=== PATIENT | female | born 1960 | race Caucasian/White ===

== ENCOUNTER 2022-09-23 18:12 | Inpatient (IN) | payer OTHER ==
[~2022-09-23] VITALS: Ht 172.7 cm; Wt 61.2 kg
[~2022-09-23 18:12] MED LIST: ALPR0.25; ALPR0.255; BACL10TA; SERT20OR; [UNRECOGNIZED DRUG - CODE]
[2022-09-23 18:15] VITALS: BP_SYST 110
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
--- NOTE | 2022-09-23 18:25 | NUR ---
ER DR. JONES EXAMINING PT
--- NOTE | 2022-09-23 18:39 | NUR ---
Placed in room 07 . Placed on housekeeping supervisor, blood pressure machine and pulse oximeter. To gown for exam. Side rails up.
[2022-09-23] MEDS ORDERED: ROCURONIUM BROMIDE 10 MG/ML (ZEMURON) IV ONE (18:45)
[2022-09-23] MEDS ORDERED: ETOMIDATE 20 MG/ 10 ML VIAL (AMIDATE) ONE (18:45)
[2022-09-23] MEDS ORDERED: ROCURONIUM BROMIDE 10 MG/ML (ZEMURON) ONE (18:45)
[2022-09-23] MEDS ORDERED: ETOMIDATE 20 MG/ 10 ML VIAL (AMIDATE) IVP ONE (18:45)
--- NOTE | 2022-09-23 18:46 | NUR ---
Patient not known to be of DNR status. Patient medicated with mg of ETOMIDATE for sedation prior to placement of ET tube. Respiratory therapy at bedside prior to placement. Size 7 ET tube placed by ER DR. JONES. Cuff inflated with 10 cc air. Auscultation of breath sounds over bilateral chest wall. ET tube secured. O2 sats 100% pulse ox. PCXR ordered to check tube placement.
--- NOTE | 2022-09-23 19:20 | NUR ---
COVID SPECIMEN COLLECTED AND SENT TO LAB.
[2022-09-23 19:34] LABS: BASOPHILS # (AUTO) 0.1 K/uL (0.0-0.2); HEMOGLOBIN 15.1 g/dL (12.0-16.0); LYMPHOCYTES # (AUTO) 0.2 K/uL (1.0-5.5); MEAN CORPUSCULAR VOLUME 103 fL (79.0-98.0); NEUTROPHILS # (AUTO) 7.3 K/uL (1.8-7.7); RED CELL DISTRIBUTION WIDTH 14.9 % (9.0-15.0)
[2022-09-23 19:38] LABS: BASOPHILS % (AUTO) 0.9 % (0.0-2.0); HEMATOCRIT 45.2 % (36-48); LYMPHOCYTES % (AUTO) 2.1 % (20.5-51.5); MEAN CORPUSCULAR HEMOGLOBIN 34 pg (27-31); MEAN CORPUSCULAR HGB CONC 33 % (32-36); MONOCYTES # (AUTO) 0.5 K/uL (0.0-1.0); PLATELET COUNT (AUTO) 187 K/uL (130-430); RED BLOOD CELL COUNT(AUTO) 4.39 MIL/uL (4.2-6.2); WHITE BLOOD COUNT (AUTO) 8.1 K/uL (4.8-10.8)
[2022-09-23] MEDS ORDERED: levETIRAcetam 1,000 MG IV BAG 100 ML IV ONE (19:45)
--- NOTE | 2022-09-23 19:45 | NUR ---
Received report at this time from MAYA Aguilar. Notified by charge nurse that assignment has been changed to include this patient. No additional nurses available at this time.
[2022-09-23 19:55] LABS: ANION GAP 23 (5-15); CALCIUM 10.4 mg/dL (8.4-11.0); CHLORIDE 99 mmol/L (98-107); GLUCOSE 105 mg/dL (70-99); UREA NITROGEN, BLOOD 5 mg/dL (8-21)
[2022-09-23 20:08] LABS: GFR AFRICAN AMERICAN 49 mL/min (>90)
[2022-09-23 20:10] LABS: ALANINE AMINOTRANSFERASE 120 U/L (12-78); ALBUMIN 4.2 g/dL (3.4-4.8); ASPARTATE AMINOTRANSFERASE 143 U/L (10-37); TOTAL BILIRUBIN 0.8 mg/dL (0.0-1.0)
[2022-09-23 20:12] LABS: ALCOHOL, BLOOD < 3 mg/dL (<10)
[2022-09-23] MEDS ORDERED: PROPOFOL DRIP 100 ML IV ONE (20:15)
[2022-09-23] MEDS ORDERED: LORazepam 2 MG/ML VIAL IVP ONE ×2 (20:15→21:15)
--- NOTE | 2022-09-23 20:15 | NUR ---
Increased propofol gtt to 24.98mcg/kg/min=9.86ml/hr.
--- NOTE | 2022-09-23 20:40 | NUR ---
Propofol Started at 9.984mcg/kg/min =3.94ml/hr.
--- NOTE | 2022-09-23 20:50 | NUR ---
Propofol gtt increased to 19.99mcg/kg/min=7.89ml/hr. Pt still attempting to self extubate.
[2022-09-23] MEDS ORDERED: NACL 0.9% 2,000 ML IV ONE (21:00)
[2022-09-23] MEDS ORDERED: NOREPINEPHRINE BITARTRATE 4 MG in NS 246 ML IV ONE (21:00)
--- NOTE | 2022-09-23 21:05 | NUR ---
Report given to KHLOE Moralez. Assignment changed.
[2022-09-23] MEDS ORDERED: LORazepam 2 MG/ML VIAL ONE (21:11)
[2022-09-23] MEDS ORDERED: MIDAZOLAM HCL 5 MG/5 ML VIAL IVP ONE (21:45)
[2022-09-23] MEDS ORDERED: MIDAZOLAM IN NACL,ISO-OSMOT/PF 100 ML IV PRN (21:45)
[2022-09-23] MEDS ORDERED: PIPERACILLIN/TAZO 3.375 GM in NS 50 ML IV ONE (22:15)
[2022-09-23] MEDS ORDERED: VANCOMYCIN HCL 1,500 MG in NS 250 ML IV SCH (22:15)
[2022-09-23] MEDS ORDERED: MIDAZOLAM IN NACL,ISO-OSMOT/PF 100 ML IV ONE (22:17)
[2022-09-23] MEDS ORDERED: VANCOMYCIN HCL 1000 MG/VIAL IV ONE (22:52)
[2022-09-23] MEDS ORDERED: PIPERACILLIN/TAZOBACTAM 3.375 GM/VIAL (ZOSYN) IV ONE (22:53)
[2022-09-23] MEDS ORDERED: VANCOMYCIN HCL 500 MG/VIAL IV ONE (22:53)
[2022-09-24] VITALS (30 sets, daily range): BP systolic 86–141
--- NOTE | 2022-09-24 00:12 | NUR ---
Bagley catheter inserted with femal nurse at bedside
[2022-09-24] MEDS ORDERED: FOLIC ACID 1 MG, THIAMINE HCL 100 MG, MAGNESIUM SULFATE 1 GM, MVI 10 ML in NACL 0.9% 1,... IV ONE (01:15)
[2022-09-24] MEDS ORDERED: LORazepam 2 MG/ML VIAL IM ONE (01:15)
--- NOTE | 2022-09-24 01:20 | NUR ---
Admit bed requested Patient will be admitted to care of . Admitted to icu unit. Diagnosis seizure Inpatient (Yes or No) yes Observation (Yes or No) yes Orientation concerns or request close to nursing station (Yes or No) yes Covid Status negative On vent or bipap vent Isolation requirements no Needs a sitter n From Home (Yes or if No enter name of facility) yes Requires Dialysis (Yes or No) n Med Rec Completed (Yes of No) y
[2022-09-24 01:32] LABS: BILIRUBIN,URINE NEGATIVE (NEGATIVE); BLOOD, URINE 2+ (NEGATIVE); CLARITY/URINE CLEAR (CLEAR); COLOR,URINE YELLOW (YELLOW); GLUCOSE,URINE NEGATIVE (NEGATIVE); KETONES,URINE 1+ (NEGATIVE); LEUKOCYTE ESTERASE ,URINE NEGATIVE (NEGATIVE); NITRITE, URINE NEGATIVE (NEGATIVE); PROTEIN URINE 1+ (NEGATIVE); UROBILINOGEN,URINE 0.2 (0.2-1.0)
[2022-09-24 02:18] LABS: BACTERIA,URINE FEW /HPF (None Seen); YEAST,URINE Few /HPF (None Seen)
[2022-09-24 02:19] LABS: MUCUS,URINE None Seen /LPF (None Seen)
[2022-09-24] MEDS ORDERED: SODIUM BICARBONATE 8.4% JECT 100 MEQ in D5W 1,000 ML IVP SCH (07:00)
[2022-09-24 07:21] LABS: CALCIUM 8.1 mg/dL (8.4-11.0); CREATININE 1.15 mg/dL (0.55-1.30)
[2022-09-24 07:25] LABS: BASOPHILS % (AUTO) 0.1 % (0.0-2.0); HEMATOCRIT 35.8 % (36-48); HEMOGLOBIN 12.2 g/dL (12.0-16.0); LYMPHOCYTES # (AUTO) 0.4 K/uL (1.0-5.5); LYMPHOCYTES % (AUTO) 5.8 % (20.5-51.5); MEAN CORPUSCULAR HEMOGLOBIN 34 pg (27-31); MEAN CORPUSCULAR HGB CONC 34 % (32-36); MEAN CORPUSCULAR VOLUME 101 fL (79.0-98.0); MONOCYTES # (AUTO) 0.4 K/uL (0.0-1.0); MONOCYTES % (AUTO) 5.5 % (1.7-9.3); NEUTROPHILS # (AUTO) 6.5 K/uL (1.8-7.7); NEUTROPHILS % (AUTO) 88.6 % (40.0-70.0); PLATELET COUNT (AUTO) 140 K/uL (130-430); RED BLOOD CELL COUNT(AUTO) 3.55 MIL/uL (4.2-6.2); RED CELL DISTRIBUTION WIDTH 14.4 % (9.0-15.0); WHITE BLOOD COUNT (AUTO) 7.3 K/uL (4.8-10.8)
--- NOTE | 2022-09-24 07:35 | NUR ---
RT NOTES FIO2 TO 0.30 per titration order. No adverse reactions noted. will monitor pt.
[2022-09-24] MEDS ORDERED: FOLIC ACID 1 MG, THIAMINE HCL 100 MG, MAGNESIUM SULFATE 1 GM, MVI 10 ML in NACL 0.9% 1,... IV SCH (08:00)
[2022-09-24] MEDS ORDERED: POTASSIUM CHLORIDE 20 MEQ/PKT PACKET PO ONE (08:30)
[2022-09-24] MEDS ORDERED: FENTANYL CITRATE-0.9 % NACL/PF 100 ML IV PRN (08:30)
--- NOTE | 2022-09-24 09:59 | NUR ---
PULMO ROUNDED DR BOWEN: NGT PLACED TO RIGHT NARE, XRAY VERIFIED PLACEMENT. DIETARY CONSULT FOR RECOMMENDATIONS FOR TUBE FEEDING. BANANA BAG WILL BE GIVEN X1, NA BICARB DC NOT INDICATED ANYMORE, WILL DC VERSED PLACE ON FENTANYL. POTASSIUM REPLACED WITH 40MEQ. LOVENOX AND FOLIC ACID ADDED. ATIVAN PRN SEIZURES IVP ADDED. SPOKE WITH HE STATED PATIENT IS FROM HOME FOUND NON RESPONSIVE YESTERDAY, UPDATED ON PATIENT STATUS. EXPLAINED PATIENT IS A CHRONIC ALCOHOLIC, WAS HOSPITALIZED LAST MARCH FOR ALCOHOL, SOBER THREE MONTHS AND RECENTLY RELAPSED. SHE DRINKS 100 BEERS OVER THE COURSE OF THREE DAYS. HE STATED HE HAS BEEN BATTLING THIS WITH HER FOR A LONG TIME. HE CURRENTLY WORKS AND WILL VISIT WHEN HE IS OFF.
--- NOTE | 2022-09-24 10:00 | NUR ---
DIRECTOR OF STUDENT FINANCIAL SERVICES ACSW Joann responded to a request for Social Service support to help address difficulties with contacting patient's significant other. ACSDeven David contacted [facility] cell . ACSW completed introductions and explained reason for call. He stated he has just spoken with ICU staff concerning patient. ACSW will continue to be available as needed
[2022-09-24] MEDS: ENOXAPARIN SODIUM 40 MG/0.4 ML SYRINGE SUBCUT SCH (10:05)
[2022-09-24] MEDS: FOLIC ACID 1 MG, MVI 10 ML in NACL 0.9% 1,000 ML IV SCH (10:11)
[2022-09-24] MEDS: FAMOTIDINE 20 MG TABLET NG SCH (10:11)
[2022-09-24] MEDS: THIAMINE HCL 100 MG, MAGNESIUM SULFATE 1 GM in NS 100 ML IV SCH (10:12)
[2022-09-24 11:12] LABS: ALBUMIN 3.1 g/dL (3.4-4.8); BILIRUBIN,DIRECT 0.4 mg/dL (0.0-0.3); TOTAL BILIRUBIN 0.8 mg/dL (0.0-1.0)
[2022-09-24] MEDS: PIPERACILLIN/TAZO 3.375/DEX-IS 50 ML IV SCH ×3 (12:22→23:27)
[2022-09-24] MEDS: PROPOFOL DRIP 100 ML IV PRN (12:55)
--- NOTE | 2022-09-24 13:35 | NUR ---
RT NOTES Low b/p, discussed with RN, will take pt to ct once more stable
[2022-09-24] MEDS: NOREPINEPHRINE BITARTRATE 8 MG in NS 242 ML IV PRN (13:59)
--- NOTE | 2022-09-24 15:20 | NUR ---
Dietitian Recommendations * Vital AF 1.2 at 50 ml/hr (goal rate), Free Water Flush: 150 ml Q6h via NGT Provides (w/ current propofol infusion rate): 1445 kcal/day, 68 gm protein/day, and 1330 ml free water/day Meets (w/ current propofol infusion rate): 103% of estimated caloric needs, 92% of lower end of estimated protein needs, and 95% of estimated fluid needs LP, MS, RD Please refer to Nutrition Assessment for details. Addendum: 09/24/22 at [address] Amended: Links added.
--- NOTE | 2022-09-24 15:45 | NUR ---
RT NOTES Assisted in transporting pt to and from ct, bagged with 100% O2 via BM device to ETT. Once in ct and back in the unit, pt to vent with same settings. A.w remains secure/patent. Sat 100% through out transport.
--- NOTE | 2022-09-24 16:39 | NUR ---
PARTNER AT BEDSIDE, UPDATED ON PATIENT STATUS. CT HEAD TAKEN, RESULTED (-)
[2022-09-25] VITALS (31 sets, daily range): BP systolic 86–137
[2022-09-25] MEDS: PROPOFOL DRIP 100 ML IV PRN (03:41)
[2022-09-25] MEDS: PIPERACILLIN/TAZO 3.375/DEX-IS 50 ML IV SCH ×3 (06:04→17:43)
[2022-09-25 06:50] LABS: BASOPHILS # (AUTO) 0.1 K/uL (0.0-0.2); BASOPHILS % (AUTO) 0.6 % (0.0-2.0); EOSINOPHILS # (AUTO) 0.2 K/uL (0.0-0.4); EOSINOPHILS % (AUTO) 1.8 % (0.0-4.0); HEMATOCRIT 40.8 % (36-48); HEMOGLOBIN 13.6 g/dL (12.0-16.0); LYMPHOCYTES # (AUTO) 1.5 K/uL (1.0-5.5); LYMPHOCYTES % (AUTO) 14.9 % (20.5-51.5); MEAN CORPUSCULAR HEMOGLOBIN 34 pg (27-31); MEAN CORPUSCULAR HGB CONC 33 % (32-36); MEAN CORPUSCULAR VOLUME 102 fL (79.0-98.0); MONOCYTES # (AUTO) 0.7 K/uL (0.0-1.0); MONOCYTES % (AUTO) 7.2 % (1.7-9.3); NEUTROPHILS # (AUTO) 7.6 K/uL (1.8-7.7); NEUTROPHILS % (AUTO) 75.5 % (40.0-70.0); PLATELET COUNT (AUTO) 138 K/uL (130-430); RED BLOOD CELL COUNT(AUTO) 3.99 MIL/uL (4.2-6.2)
[2022-09-25 06:57] LABS: CREATININE 2.32 mg/dL (0.55-1.30)
--- NOTE | 2022-09-25 07:30 | NUR ---
Received report from Gilbert LEDBETTER. Patient is stable, remains on propofol @ 40 mcg/kg/min, and levophed @ 0.1 mcg/kg/min. Ventilator settings AC 20, tidal volume 400, FIO2 30%, and peep of 5. Bagley catheter is in place draining to gravity. Bed is locked and in lowest position, fall and safety precautions is in place.
[2022-09-25] MEDS: FOLIC ACID 1 MG, MVI 10 ML in NACL 0.9% 1,000 ML IV SCH (09:41)
[2022-09-25] MEDS: THIAMINE HCL 100 MG, MAGNESIUM SULFATE 1 GM in NS 100 ML IV SCH (09:41)
[2022-09-25] MEDS: ENOXAPARIN SODIUM 40 MG/0.4 ML SYRINGE SUBCUT SCH (09:46)
[2022-09-25] MEDS: FAMOTIDINE 20 MG TABLET NG SCH (09:46)
--- NOTE | 2022-09-25 14:30 | NUR ---
RT NOTES sedation is off, pt followed simple command, vent to cpap 5 ps 10 per order. no immediate adverse reactions noted. will cont. to monitor pt.
--- NOTE | 2022-09-25 15:30 | NUR ---
RT NOTES Vent back to AC
[2022-09-25] MEDS: LORazepam 2 MG/ML VIAL IVP PRN (16:03)
--- NOTE | 2022-09-25 16:06 | NUR ---
CALLED FOR CONSULT FOR DR STEVENSON VIA [facility] REQUESTING ORDERS.
--- NOTE | 2022-09-25 16:51 | NUR ---
SPOKE WITH NIA AT [facility] REQUESTING ORDERS FROM DR. STEVENSON.
--- NOTE | 2022-09-25 19:30 | NUR ---
PM ASSESSMENT REPORT RECEIVED FROM PRETTY LEDBETTER. PT RECEIVED IN BED WITH EYES CLOSED, INTUBATED. VSS, NO S/S OF ACUTE DISTRESS NOTED. VENT SETTINGS: AC 18, TV 400, FIO2 30%, PEEP 5. AALIYAH PICC IN PLACE INFUSING DIPRIVAN, LEVOPHED, AND FENTANYL DRIPS PER ORDERS. R NARE NGT IN PLACE RUNNING TF PER ORDERS. BILATERAL SOFT WRIST RESTRAINTS IN PLACE. MARROQUIN CATH DRAINING URINE TO GRAVITY. HOB ELEVATED, BED IN LOWEST POSITION, CALL LIGHT IN REACH. WILL CONTINUE TO MONITOR PT.
[2022-09-25] MEDS ORDERED: INSULIN REGULAR, HUMAN 100 UNITS/ML, 3 ML VIAL (humuLIN R) SUBCUT PRN (20:30)
--- NOTE | 2022-09-25 22:00 | NUR ---
ENDORSEMENT BEDSIDE REPORT GIVEN TO VIDAL LEDBETTER FOR ASSUMPTION OF CARE.
--- NOTE | 2022-09-25 22:51 | NUR ---
Patient intubated with FI02 30 % chest movement shallow Respirations even & Regular HOB elevated NG Tube Right nares Tube feeding Vital 1.2 @ 30 ML HR BP 98/67 HR 88 bpm comfort measures implemented & position change tolerated no SOB noted / .
[2022-09-25 23:31] LABS: BARBITURATE, URINE NEGATIVE (NEG <=200); BENZODIAZEPINE, URINE POSITIVE (NEG <=150); CANNABINOID, URINE NEGATIVE (NEG <=50); COCAINE, URINE NEGATIVE (NEG <=150); METHAMPHETAMINES SCREEN,URINE NEGATIVE (NEG <=500); OPIATE, URINE NEGATIVE (NEG <=100); PHENCYCLIDINE SCREEN,URINE NEGATIVE (NEG <=25); UR TRICYCLIC ANTIDEPRESSANTS NEGATIVE (NEG <=300); URINE AMPHETAMINE NEGATIVE (NEG <=500); URINE METHADONE NEGATIVE (NEG <=200); URINE OXYCODONE SCREEN NEGATIVE (NEG <=100); URINE PROPOXYPHENE SCREEN NEGATIVE (NEG <=300)
[2022-09-26] VITALS (34 sets, daily range): BP systolic 89–119
--- NOTE | 2022-09-26 00:11 | NUR ---
MRSA of the NARES collected & sent to lab .
[2022-09-26] MEDS: PIPERACILLIN/TAZO 3.375/DEX-IS 50 ML IV SCH ×5 (00:30→23:02)
[2022-09-26] MEDS: PROPOFOL DRIP 100 ML IV PRN ×3 (00:43→22:29)
--- NOTE | 2022-09-26 02:43 | NUR ---
endotracheal suctioning thick white sputum / secretions upright position 02 SAT 97 % procedure tolerated .
--- NOTE | 2022-09-26 06:38 | NUR ---
CHG bed bath given , patient tolerated kept clean also dry as needed / .
[2022-09-26 06:42] LABS: BASOPHILS % (AUTO) 0.3 % (0.0-2.0); EOSINOPHILS # (AUTO) 0.3 K/uL (0.0-0.4); EOSINOPHILS % (AUTO) 2.6 % (0.0-4.0); HEMATOCRIT 41.6 % (36-48); HEMOGLOBIN 13.9 g/dL (12.0-16.0); LYMPHOCYTES # (AUTO) 0.8 K/uL (1.0-5.5); LYMPHOCYTES % (AUTO) 8.4 % (20.5-51.5); MEAN CORPUSCULAR HEMOGLOBIN 34 pg (27-31); MEAN CORPUSCULAR HGB CONC 33 % (32-36); MEAN CORPUSCULAR VOLUME 102 fL (79.0-98.0); MONOCYTES % (AUTO) 10.2 % (1.7-9.3); NEUTROPHILS # (AUTO) 7.8 K/uL (1.8-7.7); NEUTROPHILS % (AUTO) 78.5 % (40.0-70.0); PLATELET COUNT (AUTO) 131 K/uL (130-430); RED BLOOD CELL COUNT(AUTO) 4.08 MIL/uL (4.2-6.2); RED CELL DISTRIBUTION WIDTH 15.1 % (9.0-15.0)
[2022-09-26 08:19] LABS: ALBUMIN 2.4 g/dL (3.4-4.8); CALCIUM 8.7 mg/dL (8.4-11.0); CREATININE 2.89 mg/dL (0.55-1.30); TOTAL BILIRUBIN 0.4 mg/dL (0.0-1.0)
[2022-09-26] MEDS: ENOXAPARIN SODIUM 40 MG/0.4 ML SYRINGE SUBCUT SCH (09:35)
[2022-09-26] MEDS: FAMOTIDINE 20 MG TABLET NG SCH (09:35)
[2022-09-26] MEDS: FOLIC ACID 1 MG, MVI 10 ML in NACL 0.9% 1,000 ML IV SCH (11:10)
[2022-09-26] MEDS: THIAMINE HCL 100 MG, MAGNESIUM SULFATE 1 GM in NS 100 ML IV SCH (11:10)
[2022-09-26] MEDS ORDERED: POTASSIUM CHLORIDE 20 MEQ/PKT PACKET PO ONE (11:45)
--- NOTE | 2022-09-26 12:01 | NUR ---
At 1100 CPAP of 10 and PS was applied by RT and closely monitored and tolerating it
[2022-09-26] MEDS ORDERED: NACL 0.9% 500 ML IV ONE (12:45)
[2022-09-26] MEDS: NOREPINEPHRINE BITARTRATE 8 MG in NS 242 ML IV PRN (15:56)
--- NOTE | 2022-09-26 16:14 | NUR ---
1603 PT PLACED BACK TO AC. LEDBETTER AWARE. Addendum: 09/26/22 at 1615 by Ml Bingham RT Amended: Links added.
--- NOTE | 2022-09-26 19:30 | NUR ---
PM ASSESSMENT REPORT RECEIVED FROM LANCE LEDBETTER. PT RECEIVED IN BED WITH EYES CLOSED, RESPONDING TO TACTILE STIMULATION. VSS, NO S/S OF ACUTE DISTRESS NOTED. PT INTUBATED, VENT SETTINGS: AC 18, TV 400, FIO2 30%, PEEP 5. SR ON MONITOR. AALIYAH PICC IN PLACE RUNNING IVF, DIPRIVAN, LEVOPHED, AND FENTANYL DRIPS PER ORDERS. R HAND 22G TO SL. R NARE NGT RUNNING TF PER ORDERS. BILATERAL SOFT WRIST RESTRAINTS IN PLACE FOR SAFETY. MARROQUIN CATH DRAINING URINE TO GRAVITY. HOB ELEVATED, BED IN LOWEST POSITION, CALL LIGHT IN REACH. WILL CONTINUE TO MONITOR PT.
--- NOTE | 2022-09-26 23:30 | NUR ---
BM PT HAD LARGE BROWN LOOSE STOOL. RYLEY CARE PROVIDED, CHG BATH GIVEN AND LINENS CHANGED.
[2022-09-27] VITALS (30 sets, daily range): BP systolic 93–141
--- NOTE | 2022-09-27 | NUR ---
TF TF INCREASED TO GOAL RATE OF 50 CC/HR PER ORDERS, NO RESIDUALS NOTED VIA NGT. WILL CONTINUE TO MONITOR PT.
--- NOTE | 2022-09-27 03:30 | NUR ---
BM PT HAD ANOTHER EPISODE OF MODERATE AMOUNT LOOSE BROWN STOOL. RYLEY CARE PROVIDED AND LINENS CHANGED.
--- NOTE | 2022-09-27 04:00 | NUR ---
TF PT HAVING CONTINUOUS EPISODES OF LOOSE STOOL. TF DECREASED TO 30 CC/HR AT THIS TIME. WILL CONTINUE TO MONITOR PT.
[2022-09-27] MEDS: PIPERACILLIN/TAZO 3.375/DEX-IS 50 ML IV SCH ×3 (05:15→17:18)
[2022-09-27] MEDS: PROPOFOL DRIP 100 ML IV PRN (05:28)
[2022-09-27 06:47] LABS: BASOPHILS % (AUTO) 0.1 % (0.0-2.0); EOSINOPHILS # (AUTO) 0.3 K/uL (0.0-0.4); EOSINOPHILS % (AUTO) 3.2 % (0.0-4.0); HEMATOCRIT 37.7 % (36-48); HEMOGLOBIN 12.7 g/dL (12.0-16.0); LYMPHOCYTES # (AUTO) 0.7 K/uL (1.0-5.5); LYMPHOCYTES % (AUTO) 8.3 % (20.5-51.5); MEAN CORPUSCULAR HEMOGLOBIN 34 pg (27-31); MEAN CORPUSCULAR HGB CONC 34 % (32-36); MEAN CORPUSCULAR VOLUME 100 fL (79.0-98.0); MONOCYTES # (AUTO) 0.8 K/uL (0.0-1.0); MONOCYTES % (AUTO) 10.4 % (1.7-9.3); NEUTROPHILS # (AUTO) 6.3 K/uL (1.8-7.7); PLATELET COUNT (AUTO) 109 K/uL (130-430); RED BLOOD CELL COUNT(AUTO) 3.76 MIL/uL (4.2-6.2)
[2022-09-27 07:09] LABS: CALCIUM 8.6 mg/dL (8.4-11.0); CREATININE 2.76 mg/dL (0.55-1.30)
--- NOTE | 2022-09-27 07:55 | NUR ---
RT NOTES RN to notify RT when to start CPAP trial, currently, sedation is still on.
--- NOTE | 2022-09-27 08:40 | NUR ---
RT NOTES Per Rn, Dr Story ordered CPAP for 45 minutes, then draw ABG for possible extubation. Rn will start sedation titration
[2022-09-27] MEDS: FAMOTIDINE 20 MG TABLET NG SCH (09:00)
--- NOTE | 2022-09-27 09:03 | NUR ---
RT NOTES RN to notify Rt when to start CPAP, charge nurse made aware of plan.
[2022-09-27] MEDS: NOREPINEPHRINE BITARTRATE 8 MG in NS 242 ML IV PRN (09:48)
[2022-09-27] MEDS: ENOXAPARIN SODIUM 40 MG/0.4 ML SYRINGE SUBCUT SCH (09:50)
[2022-09-27] MEDS ORDERED: FUROSEMIDE 40 MG/4 ML VIAL IVP ONE (10:00)
[2022-09-27] MEDS: THIAMINE HCL 100 MG, MAGNESIUM SULFATE 1 GM in NS 100 ML IV SCH (11:39)
[2022-09-27] MEDS: FOLIC ACID 1 MG, MVI 10 ML in NACL 0.9% 1,000 ML IV SCH (11:40)
--- NOTE | 2022-09-27 12:50 | NUR ---
RN NOTES PROPOFOL DRIP OFF.
--- NOTE | 2022-09-27 12:55 | NUR ---
RT NOTES Sedation is now off per charge nurse, vent to CPAP 5 PS 10. Pt opens eyes when stimulated, nodded when asked if she's ok. No distress noted. Pt still fairly sleepy, exh CO2 34. will cont. to monitor pt
--- NOTE | 2022-09-27 14:04 | NUR ---
RN NOTES ABG RESULT RELAYED TO DR. BOWEN, WITH ORDERS.
--- NOTE | 2022-09-27 14:15 | NUR ---
RT NOTES Pt was extubated and placed on 2L NC per Dr's order. No distress noted. Pt was educated on deep-breathing exercises, pt nodded to confirm understanding. Oral sxn done before cuff deflation. Will monitor pt.
--- NOTE | 2022-09-27 14:50 | NUR ---
T 1415- pt was extubated by RT per Dr. Choi order after giving him ABG result. No resp distress observed and O2 per cannula at 2l/ was applied. Complete be bath and shampoo given. Closely observed
--- NOTE | 2022-09-27 20:00 | NUR ---
Patient removed NG tube. Spoke with patient about the importance of having the NG tube. Patient refused NG tube be placed. Educated patient again about the importance of the NG tube. Patient refused. No medication due through NG tube. educational psychologist notified. Per propellant charge loader okay to leave out until MD can assess in morning.
[2022-09-28] VITALS (25 sets, daily range): BP systolic 115–163
[2022-09-28] MEDS: PIPERACILLIN/TAZO 3.375/DEX-IS 50 ML IV SCH ×5 (00:45→16:57)
[2022-09-28] MEDS ORDERED: DEXTROSE 50% JECT 50 ML DISP.SYRIN ONE (01:12)
[2022-09-28] MEDS ORDERED: D5W 1,000 ML IV PRN (01:15)
[2022-09-28] MEDS ORDERED: GLUCOSE (DEXTROSE) ORAL GEL -Adults PO PRN (01:15)
[2022-09-28] MEDS: NOREPINEPHRINE BITARTRATE 8 MG in NS 242 ML IV PRN (02:23)
[2022-09-28] MEDS: DEXTROSE 50% JECT 50 ML DISP.SYRIN IVP PRN ×2 (06:44→17:12)
--- NOTE | 2022-09-28 08:37 | NUR ---
Shayna hills called and left message on ext [phone]
[2022-09-28] MEDS: ENOXAPARIN SODIUM 40 MG/0.4 ML SYRINGE SUBCUT SCH (08:54)
[2022-09-28] MEDS: FAMOTIDINE 20 MG TABLET NG SCH (08:54)
[2022-09-28] MEDS: THIAMINE HCL 100 MG, MAGNESIUM SULFATE 1 GM in NS 100 ML IV SCH (10:01)
[2022-09-28] MEDS: FOLIC ACID 1 MG, MVI 10 ML in NACL 0.9% 1,000 ML IV SCH (10:04)
--- NOTE | 2022-09-28 16:52 | NUR ---
PT WAS SEEN FOR DYSPHAGIA. PT WAS POCKETING AND DIFFICULTY INITIATING SWALLOW FOR APPLE SAUCE. PT IS VERY CONFUSED DURING THE TRIALS AND NEEDED VERBAL REMINDER TO SWALLOW. RECOMMENDATION NOTHING BY MOUTH
[2022-09-28] MEDS ORDERED: PIPERACILLIN/TAZO 3.375/DEX-IS 50 ML IV SCH (18:00)
--- NOTE | 2022-09-28 23:45 | NUR ---
Episode of SVT x3 lasting 10-15 seconds each with HR ranging 170-200 and returning to baseline 102. Dr Orourke was paged and waiting for call back.
[2022-09-29] VITALS (24 sets, daily range): BP systolic 109–166
--- NOTE | 2022-09-29 00:05 | NUR ---
while waiting for Dr Orourke to call back Ativan 1 mg IVP was given and appears episodes of SVT have subsided. will continue to monitor.
--- NOTE | 2022-09-29 01:10 | NUR ---
Call back from Dr Orourke. Orders received to consult cardiology Dr Lance Rodrigez and to add Mg level to morning labs. will continue to monitor.
[2022-09-29] MEDS: PIPERACILLIN/TAZO 3.375/DEX-IS 50 ML IV SCH ×4 (01:24→17:36)
--- NOTE | 2022-09-29 05:17 | NUR ---
WEANED PT TO RA. RN AWARE. NO RESP. DISTRESS NOTED. SPO2 97-99
--- NOTE | 2022-09-29 06:39 | NUR ---
CONSULTATION PAGED/CALLED Reason for Consultation: Short runs of SVT Person Who was Notified: Kwame Consulting Physician: Dr Rodrgiez Automatic Packer Operator Specialty: Cardiology Ordering Physician: Dr Orourke
[2022-09-29 07:45] LABS: CALCIUM 8.9 mg/dL (8.4-11.0); CREATININE 1.43 mg/dL (0.55-1.30)
[2022-09-29 08:21] LABS: BASOPHILS % (AUTO) 0.1 % (0.0-2.0); EOSINOPHILS # (AUTO) 0.2 K/uL (0.0-0.4); EOSINOPHILS % (AUTO) 3.3 % (0.0-4.0); HEMATOCRIT 35.5 % (36-48); HEMOGLOBIN 12.1 g/dL (12.0-16.0); LYMPHOCYTES # (AUTO) 0.8 K/uL (1.0-5.5); LYMPHOCYTES % (AUTO) 16.9 % (20.5-51.5); MEAN CORPUSCULAR HEMOGLOBIN 34 pg (27-31); MEAN CORPUSCULAR HGB CONC 34 % (32-36); MEAN CORPUSCULAR VOLUME 99 fL (79.0-98.0); MONOCYTES # (AUTO) 1.1 K/uL (0.0-1.0); NEUTROPHILS # (AUTO) 2.7 K/uL (1.8-7.7); NEUTROPHILS % (AUTO) 56.7 % (40.0-70.0); PLATELET COUNT (AUTO) 119 K/uL (130-430); RED CELL DISTRIBUTION WIDTH 15.2 % (9.0-15.0); WHITE BLOOD COUNT (AUTO) 4.8 K/uL (4.8-10.8)
--- NOTE | 2022-09-29 09:20 | NUR ---
CM Received call from [facility]. Before we could have a conversation, we got disconnected. Waiting for a call back.
[2022-09-29] MEDS: ENOXAPARIN SODIUM 40 MG/0.4 ML SYRINGE SUBCUT SCH (09:31)
[2022-09-29] MEDS: FAMOTIDINE 20 MG TABLET NG SCH (09:31)
--- NOTE | 2022-09-29 09:44 | NUR ---
[facility] [phone] called. Spoke with Kendrick and medical review done. Questions answered.
[2022-09-29] MEDS: D5W 1,000 ML IV SCH ×2 (09:57→20:26)
[2022-09-29] MEDS ORDERED: POTASSIUM CHLORIDE 20 MEQ TAB.PRT.SR PO ONE (10:00)
[2022-09-29] MEDS ORDERED: FOLIC ACID 1 MG, THIAMINE HCL 100 MG, MAGNESIUM SULFATE 1 GM, MVI 10 ML in NACL 0.9% 1,... IV SCH (10:00)
[2022-09-29] MEDS ORDERED: KCL 40 mEq in 100 mL (PREMIX) 100 ML IV ONE (10:00)
[2022-09-29] MEDS ORDERED: MAGNESIUM SULFATE 50 ML IV ONE (11:45)
[2022-09-29 11:49] LABS: ERYTHROCYTE SEDIMENTATION RATE 44 MM/HR (0-20)
[2022-09-29] MEDS ORDERED: THIAMINE HCL 100 MG, MAGNESIUM SULFATE 1 GM in NS 100 ML IV SCH (13:00)
[2022-09-29] MEDS ORDERED: FOLIC ACID 1 MG, MVI 10 ML in NACL 0.9% 1,000 ML IV SCH (13:00)
[2022-09-29] MEDS: THIAMINE HCL 100 MG, MAGNESIUM SULFATE 1 GM in NS 100 ML IV SCH (15:18)
[2022-09-29] MEDS: FOLIC ACID 1 MG, MVI 10 ML in NACL 0.9% 1,000 ML IV SCH (15:19)
[2022-09-29] MEDS ORDERED: METOPROLOL SUCCINATE 25 MG TAB.SR.24H (TOPROL XL) PO ONE (17:45)
[2022-09-29] MEDS ORDERED: lisinopriL 5 MG TABLET PO ONE (18:00)
[2022-09-29] MEDS: LORazepam 2 MG/ML VIAL IVP PRN (20:26)
[2022-09-29] MEDS ORDERED: POTASSIUM CHLORIDE 20 MEQ TAB.PRT.SR PO SCH (21:00)
[2022-09-30] VITALS (24 sets, daily range): BP systolic 97–160
[2022-09-30] MEDS: D5W 1,000 ML IV SCH ×2 (05:45→10:00)
[2022-09-30] MEDS: PIPERACILLIN/TAZO 3.375/DEX-IS 50 ML IV SCH ×4 (06:00→13:18)
[2022-09-30 07:10] LABS: BASOPHILS % (AUTO) 0.3 % (0.0-2.0); EOSINOPHILS # (AUTO) 0.2 K/uL (0.0-0.4); EOSINOPHILS % (AUTO) 3.9 % (0.0-4.0); HEMATOCRIT 39.8 % (36-48); HEMOGLOBIN 13.7 g/dL (12.0-16.0); LYMPHOCYTES # (AUTO) 1.4 K/uL (1.0-5.5); LYMPHOCYTES % (AUTO) 23.9 % (20.5-51.5); MEAN CORPUSCULAR HEMOGLOBIN 34 pg (27-31); MEAN CORPUSCULAR HGB CONC 34 % (32-36); MEAN CORPUSCULAR VOLUME 98 fL (79.0-98.0); MONOCYTES # (AUTO) 1.5 K/uL (0.0-1.0); MONOCYTES % (AUTO) 25.3 % (1.7-9.3); NEUTROPHILS # (AUTO) 2.8 K/uL (1.8-7.7); NEUTROPHILS % (AUTO) 46.6 % (40.0-70.0); PLATELET COUNT (AUTO) 149 K/uL (130-430); RED BLOOD CELL COUNT(AUTO) 4.08 MIL/uL (4.2-6.2); RED CELL DISTRIBUTION WIDTH 14.9 % (9.0-15.0)
[2022-09-30 07:12] LABS: ALBUMIN 2.4 g/dL (3.4-4.8); C-REACTIVE PROTEIN QUANT 3.2 mg/dL (0-0.5); CALCIUM 8.8 mg/dL (8.4-11.0); CREATININE 1.1 mg/dL (0.55-1.30); TOTAL BILIRUBIN 0.6 mg/dL (0.0-1.0)
[2022-09-30] MEDS: ENOXAPARIN SODIUM 40 MG/0.4 ML SYRINGE SUBCUT SCH (09:27)
[2022-09-30] MEDS: METOPROLOL SUCCINATE 25 MG TAB.SR.24H (TOPROL XL) PO SCH (09:30)
[2022-09-30] MEDS: lisinopriL 5 MG TABLET PO SCH (10:25)
[2022-09-30] MEDS: FAMOTIDINE 20 MG TABLET NG SCH (10:25)
[2022-09-30 10:26] LABS: ERYTHROCYTE SEDIMENTATION RATE 44 MM/HR (0-20)
[2022-09-30] MEDS ORDERED: KCL 40 mEq in 100 mL (PREMIX) 100 ML IV ONE (10:30)
[2022-09-30] MEDS: LORazepam 2 MG/ML VIAL IVP PRN ×2 (13:16→21:35)
[2022-09-30] MEDS: THIAMINE HCL 100 MG, MAGNESIUM SULFATE 1 GM in NS 100 ML IV SCH (14:51)
[2022-09-30] MEDS: FOLIC ACID 1 MG, MVI 10 ML in NACL 0.9% 1,000 ML IV SCH (14:52)
--- NOTE | 2022-09-30 15:46 | NUR ---
pt. IS VERY RESTLESS AND AGITATED ALWAYS AND NEED TO BE WATCHED CLOSELY
[2022-09-30] MEDS ORDERED: MAGNESIUM SULFATE 3 GM in D5W 100 ML IV ONE (18:15)
[2022-09-30] MEDS ORDERED: MAGNESIUM SULFATE 1 GM/2 ML VIAL ONE (18:27)
[2022-09-30] MEDS ORDERED: MAGNESIUM SUL 2 GM/50 ML PREMIX IV ONE (18:30)
--- NOTE | 2022-09-30 19:30 | NUR ---
Pt report received. Pt alert, confused, squirming about in bed. Pt reoriented and reassured. Banana bag at 100 mL/hr and D5W at 10 mL/hr to patent and secure AALIYAH PICC. VANESSA WATSON.
--- NOTE | 2022-09-30 20:15 | NUR ---
Pt had brown watery BM on chucks, then throws it on the floor. Pt confused and anxious. Pt reassured, cleaned, fresh gown and linens applied. Ativan 2 mg given IVP. VSS.
[2022-09-30] MEDS: MAGNESIUM SULFATE 1 GM in D5W 100 ML IV SCH ×3 (21:24→22:23)
[2022-10-01] VITALS (23 sets, daily range): BP systolic 100–152
[2022-10-01] MEDS ORDERED: D5W 1,000 ML IV SCH
--- NOTE | 2022-10-01 01:20 | NUR ---
Pt had large watery brown BM. Unable to collect lab specimen as BM absorbed into chucks. Pt calm and cooperative, yet still confused. Pt cleaned and fresh linens and gown applied. Banana bag complete. D5 1/2 NS infusing at 100 mL/hr. VSS, NAD.
[2022-10-01] MEDS: PIPERACILLIN/TAZO 3.375/DEX-IS 50 ML IV SCH (01:40)
--- NOTE | 2022-10-01 04:30 | NUR ---
Pt up on side of bed, PICC line dislodged and on floor. No active bleeding to PICC site. Pressure dsgs applied. VSS, NAD. Pt reoriented and bilat soft wrist restraints applied. Will attempt PIV access.
--- NOTE | 2022-10-01 04:50 | NUR ---
Multiple unsuccessful attempts to establish PIV access. Will allow pt to rest and another RN to attempt. VSS, NAD.
--- NOTE | 2022-10-01 05:30 | NUR ---
Unsuccessful PIV attempts x 2 per KHLOE Brown. Will allow pt to rest and reattempt. VANESSA WATSON.
[2022-10-01 07:29] LABS: BASOPHILS % (AUTO) 0.4 % (0.0-2.0); EOSINOPHILS # (AUTO) 0.3 K/uL (0.0-0.4); EOSINOPHILS % (AUTO) 4.5 % (0.0-4.0); HEMATOCRIT 37.2 % (36-48); HEMOGLOBIN 12.8 g/dL (12.0-16.0); LYMPHOCYTES # (AUTO) 1.8 K/uL (1.0-5.5); LYMPHOCYTES % (AUTO) 27.4 % (20.5-51.5); MEAN CORPUSCULAR HEMOGLOBIN 33 pg (27-31); MEAN CORPUSCULAR HGB CONC 34 % (32-36); MEAN CORPUSCULAR VOLUME 97 fL (79.0-98.0); MONOCYTES # (AUTO) 1.4 K/uL (0.0-1.0); MONOCYTES % (AUTO) 21.1 % (1.7-9.3); NEUTROPHILS % (AUTO) 46.6 % (40.0-70.0); PLATELET COUNT (AUTO) 151 K/uL (130-430); RED BLOOD CELL COUNT(AUTO) 3.83 MIL/uL (4.2-6.2); RED CELL DISTRIBUTION WIDTH 14.8 % (9.0-15.0); WHITE BLOOD COUNT (AUTO) 6.5 K/uL (4.8-10.8)
--- NOTE | 2022-10-01 07:34 | NUR ---
Pt report given to oncoming RN. Pt alert, responsive, VSS, NAD.
[2022-10-01 07:59] LABS: ALBUMIN 2.2 g/dL (3.4-4.8); CALCIUM 8.9 mg/dL (8.4-11.0); CREATININE 0.83 mg/dL (0.55-1.30); PHOSPHORUS 2.5 mg/dL (2.7-4.5); TOTAL BILIRUBIN 0.5 mg/dL (0.0-1.0)
[2022-10-01] MEDS ORDERED: POTASSIUM CHLORIDE 20 MEQ TAB.PRT.SR PO ONE ×2 (08:45→11:45)
--- NOTE | 2022-10-01 08:50 | NUR ---
SPOKE WITH ALCIDES FROM DOCTORS OFFICE, REQUESTING ORDERS FOR DR. RAGSDALE
[2022-10-01] MEDS: FAMOTIDINE 20 MG TABLET NG SCH (09:44)
[2022-10-01] MEDS: lisinopriL 5 MG TABLET PO SCH (09:44)
[2022-10-01] MEDS: METOPROLOL SUCCINATE 25 MG TAB.SR.24H (TOPROL XL) PO SCH (09:45)
[2022-10-01] MEDS: ENOXAPARIN SODIUM 40 MG/0.4 ML SYRINGE SUBCUT SCH (09:45)
[2022-10-01] MEDS ORDERED: POTASSIUM CHLORIDE 20 MEQ in D5W 1,000 ML IV SCH (09:45)
--- NOTE | 2022-10-01 10:00 | NUR ---
HIGH ALERT NOTE: Called Dr. HUGO back at identified within the medical roster to verify physician authenticity. KDUR 40 MEQ X1 PO.
--- NOTE | 2022-10-01 11:42 | NUR ---
HIGH ALERT NOTE: Called Dr. ALCANTARA back at identified within the medical roster to verify physician authenticity. ORDERED KRIDER 40MEQ X1, KDUR 40MEQ X1, FLEXISEAL INSERTION SINCE PATIENT IS HAVING LOOSE STOOL TOO THING TO COLLECT STOOL SAMPLE.
[2022-10-01] MEDS ORDERED: POTASSIUM CHLORIDE 40 MEQ in NS 250 ML IV ONE (12:00)
[2022-10-01] MEDS: KCL 20 mEq in 100 mL (PREMIX) 100 ML IV SCH ×4 (12:28→23:04)
--- NOTE | 2022-10-01 14:00 | NUR ---
FLEXISEAL PLACED, PATIENT TOLERATED WELL.
--- NOTE | 2022-10-01 14:37 | NUR ---
Spoke with Viv at doctor's office, requesting Dr. Leon for orders.
[2022-10-01] MEDS: LORazepam 2 MG/ML VIAL IVP PRN (15:56)
[2022-10-01] MEDS: THIAMINE HCL 100 MG, MAGNESIUM SULFATE 1 GM in NS 100 ML IV SCH (15:57)
[2022-10-01] MEDS: FOLIC ACID 1 MG, MVI 10 ML in NACL 0.9% 1,000 ML IV SCH (15:57)
--- NOTE | 2022-10-01 16:00 | NUR ---
Nutrition F/U: Admitting Diagnosis: Seizure Medical History Comment: PMH: alcoholism per physician notes Pt found w/ alcoholism, alcohol-related liver injury, alcohol withdrawal w/ tonic clonic seizure, acute hypoxic respiratory failure, s/p intubation for airway protection, acute encephalopathy, lactic acidosis, and polysubstance abuse per physician notes Subjective Information: RD rounded to ICU and s/w patient bedside. Patient appears confused but agreeable to nutrition assessment. Per pt, she follows a regular diet and denies food allergies. Pt endorses taking MVI, Vitamin D, and Vitamin C captain waiter. RN reports patient drinking Ensure TID but PO intake at meals varies, depending on if patient likes the foods provided. RN reports patient consumed ~75% of breakfast. Per RD chart review, patient noted with 25% PO x 1 documented meal. Per ICU rounds 10/01, patient pulled PICC line. Pt was extubated on 09/27 and pulled her NG tube out later that day. Pt no longer sedated, off propofol and levo. S/p failed swallow eval 09/28 from confusion/mentation. Pt started on puree diet with NTL on 09/29. Documented 8 x BM on 09/28 and 4 BM 09/29. RN reports 5 x BM on 09/30. MD placed order for c-diff assessment 09/30. RN reports unable to obtain stool sample because stool is too loose, so flexiseal now in place. Current Diet Order/Nutrition Support: Pureed with NTL x 1 Pertinent Medications: thiamine/mag sulfate/NS, folic acid/MVI/minerals/NS, Lisinopril, KCl IV, Toprol, D5 @ 100mL, piper/tazo, lovenox, pepcid Pertinent Labs: Drawn 09/30 - Na 155 H, K 2.1 L, BG 109 H, POC BG 104 H, Height (Feet) 5 feet Height (Inches) 8.00 inches Weight (Pounds) 135 pounds Weight (Calculated Kilograms) 61.959320 kilograms Patient Weight 61.235 kg Body Mass Index 20.52 kg/m2 %IBW 96 [place]/Adjusted Body Weight 140#/63.6 kg. Recent Weight Change Unable to verify Weight Status Appropriate Food Allergies None Current % PO 25% x 1 documented meal 09/30; Varies, per RN Skin Integrity Thor Score 13: No wounds/PI documented; Bilateral arm +1 edema noted 09/30 NEW* Estimated Energy Expenditure (kcals/day) 1342-6539 (25-30 kcal/kg d/t Extubation, Normal BMI) Estimated Protein Required (g/day) 74-92 (1.2-1.5 gm/kg CBW d/t Poor PO, Normal BMI) NEW* Estimated Fluid Required (l/day) 1.5-1.8 (1 ml/kcal/day for maintenance) Problem/Etiology/Signs/Symptoms * Inadequate nutritional intakes R/T metabolic demands AEB estimated nutritional requirements for critical illness (On-going) * Suspected suboptimal nutritional intakes R/T possible displacement of wholesome foods 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
--- NOTE | 2022-10-01 16:07 | NUR ---
Dietitian Recommendations * If/when medically appropriate, advance to mechanical soft -> regular textures * Recommend Banatrol BID * Puree diet includes Ensure TID (ONS provides 1050 kcals, 60g PRO) Please refer to nutrition F/U for details, thanks! CC, MPH, RDN
--- NOTE | 2022-10-01 18:52 | NUR ---
HIGH ALERT NOTE: Called Dr. CAREY back at identified within the medical roster to verify physician authenticity. KDUR 40 MEQ IV X1
[2022-10-02] VITALS (20 sets, daily range): BP systolic 97–164
[2022-10-02] MEDS: LORazepam 2 MG/ML VIAL IVP PRN ×2 (00:01→04:10)
[2022-10-02 06:53] LABS: BASOPHILS % (AUTO) 0.5 % (0.0-2.0); EOSINOPHILS # (AUTO) 0.3 K/uL (0.0-0.4); EOSINOPHILS % (AUTO) 3.8 % (0.0-4.0); HEMOGLOBIN 11.6 g/dL (12.0-16.0); LYMPHOCYTES # (AUTO) 3.2 K/uL (1.0-5.5); LYMPHOCYTES % (AUTO) 44.8 % (20.5-51.5); MEAN CORPUSCULAR HEMOGLOBIN 34 pg (27-31); MEAN CORPUSCULAR HGB CONC 34 % (32-36); MEAN CORPUSCULAR VOLUME 100 fL (79.0-98.0); MONOCYTES # (AUTO) 1.1 K/uL (0.0-1.0); MONOCYTES % (AUTO) 15.5 % (1.7-9.3); NEUTROPHILS # (AUTO) 2.5 K/uL (1.8-7.7); NEUTROPHILS % (AUTO) 35.4 % (40.0-70.0); PLATELET COUNT (AUTO) 164 K/uL (130-430); RED BLOOD CELL COUNT(AUTO) 3.42 MIL/uL (4.2-6.2); RED CELL DISTRIBUTION WIDTH 15.2 % (9.0-15.0); WHITE BLOOD COUNT (AUTO) 7.1 K/uL (4.8-10.8)
[2022-10-02 07:01] LABS: CALCIUM 8.7 mg/dL (8.4-11.0); CREATININE 0.67 mg/dL (0.55-1.30)
[2022-10-02] MEDS ORDERED: POTASSIUM CHLORIDE 20 MEQ TAB.PRT.SR PO ONE (07:45)
[2022-10-02] MEDS ORDERED: POTASSIUM CHLORIDE 40 MEQ in NS 250 ML IV ONE (08:00)
[2022-10-02] MEDS: METOPROLOL SUCCINATE 25 MG TAB.SR.24H (TOPROL XL) PO SCH (08:47)
[2022-10-02] MEDS: ENOXAPARIN SODIUM 40 MG/0.4 ML SYRINGE SUBCUT SCH (08:47)
[2022-10-02] MEDS: lisinopriL 5 MG TABLET PO SCH (08:48)
[2022-10-02] MEDS: KCL 20 mEq in D5W 1000 mL 1,000 ML IV SCH (08:49)
[2022-10-02] MEDS: chlordiazePOXIDE HCL 25 MG CAPSULE PO SCH ×3 (09:03→21:02)
[2022-10-02] MEDS: FAMOTIDINE 20 MG TABLET NG SCH (09:03)
[2022-10-02 13:54] LABS: CALCIUM 9.1 mg/dL (8.4-11.0); CREATININE 0.76 mg/dL (0.55-1.30)
--- NOTE | 2022-10-02 14:34 | NUR ---
0800: PATIENT IS ASLEEP WITH BILATERAL SOFT WRIST RESTRAINT IN PLACE, SKIN AND CIRCULATION BENEATH RESTRAINT REMAIN INTACT. NO S/S OF ANY ACUTE DISTRESS NOTED. WILL CONTINUE TO REASSESS PRN. ABNORMAL LAB RELAYED TO DR. THAKKAR COVERING FOR DR. STEVENSON WITH NEW ORDER RECEIVED NOTED AND CARRIED OUT ORDERED. PATIENT TOLERATED PO WELL W/O ANY ABDOMINAL DISCOMFORT NOTED. 0900: STARTED ON IV FLUID WITH K, K-RIDER, AND PO K ORDERED WILL REDRAW BMP @ 1300. 1400: K LEVEL IS NOW 3.7, NA AND CL LEVEL IMPROVING. NO S/S OF ELEVATED NA AND CL NOTED. WILL CONTINUE TO MONITOR PATIENT.
--- NOTE | 2022-10-02 19:26 | NUR ---
1900: ABLE TAKE RESTRAINT OFF, PATIENT IS MORE COHERENT AND ORIENTED. FAIR APPETITE BUT NEEDS ASSISTANCE WITH FOOD. ELECTROLYTE REPLACEMENT DONE ORDERED. ENDORSED PATIENT TO PM SHIFT NURSE.
[2022-10-03] VITALS (20 sets, daily range): BP systolic 114–148
--- NOTE | 2022-10-03 03:00 | NUR ---
PATIENT CONFUSED AND RESTLESS, PATIENT REMOVED IV LINE AND DRESSINGS. IV FOUND INTACT, SOME BLEEDING NOTED WITH PRESSURE APPLIED. NEW IV RE INSERTED TO RIGHT UPPER CHEST, IVF INFUSING. PATIENT STABLE.
[2022-10-03] MEDS: KCL 20 mEq in D5W 1000 mL 1,000 ML IV SCH ×2 (05:45→23:45)
[2022-10-03 07:13] LABS: BASOPHILS # (AUTO) 0.1 K/uL (0.0-0.2); BASOPHILS % (AUTO) 0.8 % (0.0-2.0); EOSINOPHILS # (AUTO) 0.3 K/uL (0.0-0.4); EOSINOPHILS % (AUTO) 4.5 % (0.0-4.0); HEMATOCRIT 33.5 % (36-48); HEMOGLOBIN 11.4 g/dL (12.0-16.0); LYMPHOCYTES # (AUTO) 2.9 K/uL (1.0-5.5); MEAN CORPUSCULAR HEMOGLOBIN 34 pg (27-31); MEAN CORPUSCULAR HGB CONC 34 % (32-36); MEAN CORPUSCULAR VOLUME 98 fL (79.0-98.0); MONOCYTES # (AUTO) 0.6 K/uL (0.0-1.0); MONOCYTES % (AUTO) 8.2 % (1.7-9.3); NEUTROPHILS # (AUTO) 2.9 K/uL (1.8-7.7); NEUTROPHILS % (AUTO) 43.5 % (40.0-70.0); PLATELET COUNT (AUTO) 199 K/uL (130-430); RED BLOOD CELL COUNT(AUTO) 3.41 MIL/uL (4.2-6.2); RED CELL DISTRIBUTION WIDTH 15.1 % (9.0-15.0); WHITE BLOOD COUNT (AUTO) 6.7 K/uL (4.8-10.8)
--- NOTE | 2022-10-03 07:15 | NUR ---
DR. ALCANTARA MADE AWARE THAT PATIENT REMOVED IV LINE AND NEW IV LINE INSERTED TO RIGHT UPPER CHEST. NEW ORDER FOR MIDLINE GIVEN BY MD. WILL CARRY OUT ORDER.
--- NOTE | 2022-10-03 07:33 | NUR ---
ENDORSEMENT PATIENT CARE ENDORSED TO ROD LEDBETTER.
[2022-10-03 07:37] LABS: CALCIUM 8.7 mg/dL (8.4-11.0); CREATININE 0.67 mg/dL (0.55-1.30); TOTAL BILIRUBIN 0.3 mg/dL (0.0-1.0)
--- NOTE | 2022-10-03 08:54 | NUR ---
aT 0850 dr.a Paulson WAS CALLED TO INFORM LOW k3,3
[2022-10-03] MEDS ORDERED: KCL 40 mEq in 100 mL (PREMIX) 100 ML IV ONE (09:00)
[2022-10-03] MEDS: FAMOTIDINE 20 MG TABLET NG SCH (09:55)
[2022-10-03] MEDS: lisinopriL 5 MG TABLET PO SCH (09:56)
[2022-10-03] MEDS: chlordiazePOXIDE HCL 25 MG CAPSULE PO SCH ×3 (09:56→20:35)
[2022-10-03] MEDS: METOPROLOL SUCCINATE 25 MG TAB.SR.24H (TOPROL XL) PO SCH (09:56)
[2022-10-03] MEDS: ENOXAPARIN SODIUM 40 MG/0.4 ML SYRINGE SUBCUT SCH (09:57)
--- NOTE | 2022-10-03 13:53 | NUR ---
MIDLINE INSERTION DONE BY picc LINE NURSE rt, UPPER ARM
--- NOTE | 2022-10-03 15:26 | NUR ---
Nutrition F/U Admitting Diagnosis: Seizure Medical History Comment: PMH: Pt found w/ alcoholism, alcohol-related liver injury, alcohol withdrawal w/ tonic clonic seizure, acute hypoxic respiratory failure, s/p intubation for airway protection, acute encephalopathy, lactic acidosis, and polysubstance abuse per physician note. Per previous RD note: Pt was extubated on 09/27 and pulled her NG tube out later that day. Pt no longer sedated, off propofol and levo. S/p failed swallow eval 09/28 from confusion/mentation. Flexiseal in place 10/01. Subjective Information: Associate Professor Computer Science rounded to pt bedside, pt awake but appeared drowsy/fatigued. Pt attested to tolerating mechanical soft diet w/ Glucerna TID. Per EMR review, BG levels look managed-- however, pt prefers to stay on Glucerna. Average PO intake 83% x 3 meals w/ maximum eating assistance per EMR review. Associate Professor Computer Science noted 75% of breakfast tray consumed and 25% of lunch tray consumed today. Per pt report, no issues w/ N/V/C/D. Associate Professor Computer Science witnessed IV KCl in D5W running at 50ml/hr (provides 204kcal/day). CBW 144#/65.5kg -- questionable 9# wt gain since admission. Unable to assess pt's physical appearance d/t covered in multiple linens. LBM 10/03 per EMR review. Current Diet Order/Nutrition Support: Mechanical Soft, Na2GM diet, Glucerna TID x 1 day Pertinent Medications: IV Piper/Tazo, NaCl @ 25ml/hr, KCl in D5W @ 50ml, Lisinopril, Toprol, Lovenox, Pepcid, Librium, SSI Pertinent Labs: Drawn 10/03 - Na 147 H - improving, K 3.3 L - improving, BG 86 WNL, POC BG 119 H, Anthropometrics: Height: 5'8 Pre[place] Weight: 135#/61.2kg NEW Weight: 144#/65.5kg NEW Body Mass Index: 21.9 kg/m2 NEW %IBW: 103 [place]/Adjusted Body Weight 140#/63.6kg Recent Weight Change Questionable unintentional wt gain of 9#/6% wt change w/in 1 week Weight Status Appropriate Food Allergies None Current % PO 83% x 3 meals Skin Integrity Thor Score 17: No wounds/PI documented; Bilateral arm +1 edema noted 10/03 NEW Estimated Energy Expenditure (kcals/day) 0714-9306 (25-30 kcal/kg CBW d/t adult maintenance) NEW Estimated Protein Required (g/day) 52-66 (0.8-1g/kg CBW d/t adult maintenance) NEW Estimated Fluid Required (l/day) 1.6-2 (1 ml/kcal/day for maintenance) Problem/Etiology/Signs/Symptoms * Inadequate nutritional intakes R/T metabolic demands AEB estimated nutritional requirements for critical illness (On-going) * Suspected suboptimal nutritional intakes R/T possible displacement of wholesome foods 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 Dietitian Recommendations * Continue Na2GM, Mechanical Soft diet, Glucerna TID per MD order (660kcal/day, 30g protein/day) * If/when medically appropriate, advance to Regular texture Mod Risk: F/U in 3-5days Follow Up By: Oct 08, 2022 Co-Signed By: Marilou Bradshaw, MS, RD
--- NOTE | 2022-10-03 15:27 | NUR ---
Dietitian Recommendations * Continue Na2GM, Mechanical Soft diet, Glucerna TID per MD order (660kcal/day, 30g protein/day) * If/when medically appropriate, advance to Regular texture LP, MS, RD Please refer to Nutrition F/U for details.
--- NOTE | 2022-10-03 23:00 | NUR ---
ATTEMPTED TO CALL [facility] VIA CELL LEFT VOICEMAIL
--- NOTE | 2022-10-03 23:58 | NUR ---
2ND PAGE FOR VIA [facility]
[2022-10-04] VITALS (24 sets, daily range): BP systolic 97–148
[2022-10-04 05:42] LABS: BASOPHILS % (AUTO) 0.4 % (0.0-2.0); EOSINOPHILS # (AUTO) 0.3 K/uL (0.0-0.4); EOSINOPHILS % (AUTO) 4.4 % (0.0-4.0); HEMATOCRIT 31.1 % (36-48); HEMOGLOBIN 10.6 g/dL (12.0-16.0); LYMPHOCYTES # (AUTO) 2.5 K/uL (1.0-5.5); LYMPHOCYTES % (AUTO) 35.8 % (20.5-51.5); MEAN CORPUSCULAR HEMOGLOBIN 33 pg (27-31); MEAN CORPUSCULAR HGB CONC 34 % (32-36); MEAN CORPUSCULAR VOLUME 98 fL (79.0-98.0); MONOCYTES # (AUTO) 0.5 K/uL (0.0-1.0); MONOCYTES % (AUTO) 6.8 % (1.7-9.3); NEUTROPHILS # (AUTO) 3.7 K/uL (1.8-7.7); NEUTROPHILS % (AUTO) 52.6 % (40.0-70.0); PLATELET COUNT (AUTO) 213 K/uL (130-430); RED BLOOD CELL COUNT(AUTO) 3.17 MIL/uL (4.2-6.2); RED CELL DISTRIBUTION WIDTH 15.2 % (9.0-15.0); WHITE BLOOD COUNT (AUTO) 7.1 K/uL (4.8-10.8)
[2022-10-04 06:16] LABS: ALBUMIN 1.9 g/dL (3.4-4.8); CREATININE 0.63 mg/dL (0.55-1.30); TOTAL BILIRUBIN 0.2 mg/dL (0.0-1.0)
--- NOTE | 2022-10-04 07:06 | NUR ---
Pt resting quietly in bed. E4M6V4 AOx2, SIERRA. No s/s of withdrawals. RA 17RR 97%SpO2. SR on monitor. BP stable. PO intake tolerated. Brown watery stools x2. UOP adequate. Midline DL to RA/IV access to Rbreast, sites unremarkable. Safety/aspiration precautions cont. Obtain restraint renewal from Dr. Orourke with ok to transfer to [facility] without sitter.
[2022-10-04] MEDS: ENOXAPARIN SODIUM 40 MG/0.4 ML SYRINGE SUBCUT SCH ×2 (08:38→08:41)
[2022-10-04] MEDS: chlordiazePOXIDE HCL 25 MG CAPSULE PO SCH (08:40)
[2022-10-04] MEDS: FAMOTIDINE 20 MG TABLET NG SCH (08:40)
[2022-10-04] MEDS: METOPROLOL SUCCINATE 25 MG TAB.SR.24H (TOPROL XL) PO SCH (08:41)
[2022-10-04] MEDS: lisinopriL 5 MG TABLET PO SCH (08:41)
[2022-10-04] MEDS ORDERED: POTASSIUM CHLORIDE 20 MEQ TAB.PRT.SR PO ONE (11:15)
[2022-10-04] MEDS ORDERED: PARoxetine HCL 20 MG TABLET PO ONE (12:00)
--- NOTE | 2022-10-04 18:30 | NUR ---
0800- RECEIVED PATIENT ON RESTRAINTS BUT WANTING TO GO HOME AND GET OOB TO TOILET. EXPLAINED THAT PT WILL BE COMING TO SEE HER THIS MORNING FOR EVALUATION. AALIYAH WRAPPED TO PREVENT REMOVAL. 0830- PATIENT ATE 50% OF MEAL. PATIENT DRINKING WATER WITH NO PROBLEMS. REMAINS RESTRAINED FOR OCCASIONAL FORGETFULL NESS. 0900- CLEANED ONE LOOSE BM. 1130- PT IN TO SEE PATIENT. 1230- PATIENT FEEDING SELF AND ATE 50% OF MEAL. 1800- PATIENT REMOVED RESTRAINTS AND PULLED HER MIDLINE OUT. SHE WAS FOUND ON BEDSIDE COMMODE. ASKED WHY SHE PULLED OUT HER MIDLINE AND SHE SAID SHE JUST DID NOT WANT IT. NEW 20G PIV PLACED AND MAIN IVF RECONNECTED. TAPE WRAP PLACED TO PREVENT PATIENT FROM PULLING THE NEW PIV. RE- RESTRAINED PATIENT AND DISCUSSED IMPORTANCE OF BEING SAFE. CALLED HE IS COMING IN. 1830- AT BEDSIDE AND UPDATED ON PATIENT BEHAVIOR. PLAN TO HAVE SITTER IF SHE GOES TO FLOOR. PATIENT NEEDS MINIMAL SSIST WITH MEALS. ATE 50% OF MEAL.
--- NOTE | 2022-10-04 19:30 | NUR ---
RECEIVED AWAKE, ALERT AND FOLLOWING COMMANDS APPROPRIATELY. RIGO. IN THE ROOM VISITING. PATIENT IS ON ROOM AIR, NO DIFFICULTY OF BREATHING NOTED. BEE RAISER IS SHOWING NSR, DENIES CHEST PAIN. SKIN WARM AND DRY, IVF OF D5W WITH 20 MEQKCL IS INFUSING AT 50 ML/HR VIA TIGHT AC, GA #20 PIV. ABDOMEN IS SOFT AND NON-DISTENDED. MARROQUIN INTACT AND PATENT , DRAINING MALIA COLOR URINE. AFEBRILE. RESTRAINTS ARE OFF WHILE IS HERE.
[2022-10-04] MEDS: KCL 20 mEq in D5W 1000 mL 1,000 ML IV SCH (19:45)
--- NOTE | 2022-10-04 21:00 | NUR ---
PATIENT PULLED OUT HER IV. ATTEMPTED TO REINSERT IV TWICE BUT TO NO AVAIL, WILL TRY AGAIN LATER.
[2022-10-05] VITALS (11 sets, daily range): BP systolic 98–144
[2022-10-05] MEDS: ALPRAZolam 0.25 MG TABLET PO SCH ×3 (01:30→17:50)
[2022-10-05 07:29] LABS: BASOPHILS % (AUTO) 0.6 % (0.0-2.0); EOSINOPHILS # (AUTO) 0.3 K/uL (0.0-0.4); EOSINOPHILS % (AUTO) 4.4 % (0.0-4.0); HEMATOCRIT 32.6 % (36-48); HEMOGLOBIN 11.1 g/dL (12.0-16.0); LYMPHOCYTES # (AUTO) 2.1 K/uL (1.0-5.5); LYMPHOCYTES % (AUTO) 35.3 % (20.5-51.5); MEAN CORPUSCULAR HEMOGLOBIN 34 pg (27-31); MEAN CORPUSCULAR HGB CONC 34 % (32-36); MEAN CORPUSCULAR VOLUME 98 fL (79.0-98.0); MONOCYTES # (AUTO) 0.4 K/uL (0.0-1.0); MONOCYTES % (AUTO) 6.9 % (1.7-9.3); NEUTROPHILS # (AUTO) 3.2 K/uL (1.8-7.7); NEUTROPHILS % (AUTO) 52.8 % (40.0-70.0); PLATELET COUNT (AUTO) 254 K/uL (130-430); RED BLOOD CELL COUNT(AUTO) 3.32 MIL/uL (4.2-6.2); RED CELL DISTRIBUTION WIDTH 14.8 % (9.0-15.0)
[2022-10-05 07:39] LABS: CALCIUM 8.3 mg/dL (8.4-11.0); CREATININE 0.7 mg/dL (0.55-1.30)
[2022-10-05] MEDS: lisinopriL 5 MG TABLET PO SCH (08:21)
[2022-10-05] MEDS: METOPROLOL SUCCINATE 25 MG TAB.SR.24H (TOPROL XL) PO SCH (08:22)
[2022-10-05] MEDS: FAMOTIDINE 20 MG TABLET NG SCH (08:22)
[2022-10-05] MEDS: PARoxetine HCL 20 MG TABLET PO SCH (08:23)
[2022-10-05] MEDS: LORazepam 2 MG/ML VIAL IVP PRN ×2 (08:24→22:01)
[2022-10-05] MEDS: ENOXAPARIN SODIUM 40 MG/0.4 ML SYRINGE SUBCUT SCH (08:24)
--- NOTE | 2022-10-05 11:22 | NUR ---
At 0800 am today applied mittens bilaterally and tightened both wrist restraints and siderails are up and bed in low positioned and at 1030 am pt. is trying to get out of bed. Restraints and mitten were removed by pt including IV and arriaza. Bath given and total linens changed.
--- NOTE | 2022-10-05 12:46 | NUR ---
at 1100 am , Dr Bagley here and ordered Xanax , and m,idline. Consent for midline obtained from
--- NOTE | 2022-10-05 12:47 | NUR ---
after pt pulled out arriaza and Iv, we got her up to the bed side chair and commode and changed bed linens and after that she calmed down
--- NOTE | 2022-10-05 19:35 | NUR ---
RECEIVED PATIENT SLEEPING WELL. nO RESPIRATORY DISTRESS, ON RA. SAT 98%. WORKFORCE MANAGEMENT MANAGER IS SHOWING NSR. IVF OF D5W 1 LITER WITH 20 MEQ KCL INFUSING AT 50 ML/HR. ABDOMEN IS SOFT AND NON-DISTENDED. AFEBRILE.
--- NOTE | 2022-10-05 19:38 | NUR ---
RECEIVED SEDATED WITH PROPOFOL. RASS-2. PATIENT IS INTUBATED. TV 450, FIO2 35%, AC16, PEEP 5. SATURATION 98%. FINANCIAL INTERN SHOWS NSR. ON LEVOPHED AT 0.22 MCG/KG/MIN. SBP >90. AFEBRILE. PROTONIX DRIP IS INFUSING AT 8MG/HR , NS AT 70 ML/HR AND PROPOFOL DRIP. ALL IVS ARE INFUSING IN THE RIGHT IJ TLC. ABDOMEN IS SOFT AND NON-DISTENDED. J-TUBE FEEDING OF PIVOT AT 30 ML/HR. MARROQUIN INTACT AND PATENT, DRAAINING WELL.
--- NOTE | 2022-10-05 22:03 | NUR ---
PATIENT WOKE UP AND START REMOVING ALL RESTRAITS, ASKING FOR BEDPAN, PROVIDED AND ASSISSTED. VOIDING QS.
[2022-10-06] VITALS (7 sets, daily range): BP systolic 89–112
[2022-10-06] MEDS: ENOXAPARIN SODIUM 40 MG/0.4 ML SYRINGE SUBCUT SCH (08:23)
[2022-10-06] MEDS: METOPROLOL SUCCINATE 25 MG TAB.SR.24H (TOPROL XL) PO SCH (08:25)
[2022-10-06] MEDS: PARoxetine HCL 20 MG TABLET PO SCH (08:26)
[2022-10-06] MEDS: lisinopriL 5 MG TABLET PO SCH (08:26)
[2022-10-06] MEDS: FAMOTIDINE 20 MG TABLET NG SCH (08:27)
[2022-10-06] MEDS: ALPRAZolam 0.25 MG TABLET PO SCH ×2 (14:00→21:27)
[2022-10-06] MEDS: ACETAMINOPHEN 325 MG TABLET PO PRN (16:59)
[2022-10-07 01:00] VITALS: BP_SYST 124
[2022-10-07] MEDS: ALPRAZolam 0.25 MG TABLET PO SCH ×2 (05:23→15:16)
[2022-10-07 06:52] LABS: BASOPHILS # (AUTO) 0.1 K/uL (0.0-0.2); BASOPHILS % (AUTO) 1.1 % (0.0-2.0); EOSINOPHILS # (AUTO) 0.3 K/uL (0.0-0.4); EOSINOPHILS % (AUTO) 5.7 % (0.0-4.0); HEMATOCRIT 30.9 % (36-48); HEMOGLOBIN 10.5 g/dL (12.0-16.0); LYMPHOCYTES # (AUTO) 2.3 K/uL (1.0-5.5); LYMPHOCYTES % (AUTO) 45.5 % (20.5-51.5); MEAN CORPUSCULAR HEMOGLOBIN 34 pg (27-31); MEAN CORPUSCULAR HGB CONC 34 % (32-36); MEAN CORPUSCULAR VOLUME 99 fL (79.0-98.0); MONOCYTES # (AUTO) 0.5 K/uL (0.0-1.0); MONOCYTES % (AUTO) 9.7 % (1.7-9.3); NEUTROPHILS # (AUTO) 1.9 K/uL (1.8-7.7); PLATELET COUNT (AUTO) 323 K/uL (130-430); RED BLOOD CELL COUNT(AUTO) 3.13 MIL/uL (4.2-6.2); RED CELL DISTRIBUTION WIDTH 14.6 % (9.0-15.0)
[2022-10-07 07:31] LABS: CALCIUM 8.8 mg/dL (8.4-11.0); CREATININE 0.64 mg/dL (0.55-1.30)
[2022-10-07 08:00] VITALS: BP_SYST 116
--- NOTE | 2022-10-07 09:00 | NUR ---
PULMO CONSULT: PER DR. HUGO POINT OF VIEW PATIENT CAN BE D/C HOME.
[2022-10-07] MEDS: METOPROLOL SUCCINATE 25 MG TAB.SR.24H (TOPROL XL) PO SCH (09:27)
[2022-10-07] MEDS: PARoxetine HCL 20 MG TABLET PO SCH (09:28)
[2022-10-07] MEDS: lisinopriL 5 MG TABLET PO SCH (09:28)
[2022-10-07] MEDS: FAMOTIDINE 20 MG TABLET NG SCH (09:28)
[2022-10-07] MEDS: ENOXAPARIN SODIUM 40 MG/0.4 ML SYRINGE SUBCUT SCH (09:28)
--- NOTE | 2022-10-07 09:30 | NUR ---
ASSISTED PATIENT TO THE BEDSIDE COMMODE, VOIDED.
[2022-10-07 12:00] VITALS: BP_SYST 114
--- NOTE | 2022-10-07 12:34 | NUR ---
PATIENT INFORMED ABOUT DR. STEVENSON ORDER TO D/C HOME, ALSO CONSULTED SOCIAL SERVICE FOR HOME SITUATION. NOTED AND CARRIED OUT. CHARGE NURSE GERI MADE AWARE.
--- NOTE | 2022-10-07 14:38 | NUR ---
CM Kicking Machine Operator will see pt tomorrow per Traci in CM.
--- NOTE | 2022-10-07 14:49 | NUR ---
DANIEL/CRICKET Called pts on cell phone [phone]. Pts is at work and will be by to visit after work. He has a BSC at home, a car, cooks and cleans for pt. Pt has a bed bed bed and bath in a single story mobile home that has 4 stairs to get into the home. PT came to evaluate pt and pt walked to the door with assistance. Pts would like a walker to take home upon discharge. Pts has access to get pharmacy meds for pt.
[2022-10-07 16:00] VITALS: BP_SYST 117
--- NOTE | 2022-10-07 16:04 | NUR ---
PAGED DR. STEVENSON MULTIPLE TIMES FOR ORDER OF HOME HEALTH. WAITING TO CALLBACK.
--- NOTE | 2022-10-07 16:20 | NUR ---
CM/DP Spoke with CM and discussed plan of discharge. Pt to be discharged later today with home health referral tomorrow for home safety check and medication compliance and a FWW. Pts called and is aware of plan and in agreement. He will be in later today after work to supervisor opening and picking pt. Bedside RN made aware.
[2022-10-07] MEDS: ACETAMINOPHEN 325 MG TABLET PO PRN (16:30)
[2022-10-07 16:52] VITALS: BP_SYST 117
--- NOTE | 2022-10-07 18:02 | NUR ---
D/C Patient Patient given medication reconciliation form and D/C instructions. Exit Care provided. Patient verbalized understanding. MD discussed with patient the results and treatment provided. Ambulatory with steady gait for discharge to home. Patient in stable condition, ID band removed. IV catheter removed, intact and dressing applied, no active bleeding. Rx of zoloft given. Patient educated on pain management. All belongings sent with patient.clinical social worker will contact as outpatient,hand picker by spouse ( jose d) wheel out via wheelchair. all needs mets. all questions, answered.
--- NOTE | 2022-10-08 08:16 | NUR ---
PHYSICAL THERAPY CO-SIGN The Physical Therapy Progress Notes documented by Grill Attendant have been reviewed. Reviewed/Co-Signed by: Ian Jin Documentation Done by: LALITHA LUGO PTA Addendum: 10/08/22 at 0816 by Ian Jin PT Amended: Links added.
== END 2022-10-07 18:02 | disposition home or self-care (01) | DRG 871 ==
LOC: SED 18:12 → SIC 09-24 01:08
PROVIDERS: ADMIT Internal Medicine; ATTEND Internal Medicine
PROC: 5A1945Z Respiratory Ventilation, 24-96 Consecutive Hours (ICD-10-PCS; principal; 2022-09-23)
PROC: 0BH17EZ Insertion of Endotracheal Airway into Trachea, Via Natural or Artificial Opening (ICD-10-PCS; 2022-09-23)
PROC: 02HV33Z Insertion of Infusion Device into Superior Vena Cava, Percutaneous Approach (ICD-10-PCS; 2022-09-23)
PROC: B548ZZA Ultrasonography of Superior Vena Cava, Guidance (ICD-10-PCS; 2022-09-23)
PROC: 4A00X4Z Measurement of Central Nervous Electrical Activity, External Approach (ICD-10-PCS; 2022-09-24)
PROC: 05HY33Z Insertion of Infusion Device into Upper Vein, Percutaneous Approach (ICD-10-PCS; 2022-10-01)
PROC: B54MZZA Ultrasonography of Right Upper Extremity Veins, Guidance (ICD-10-PCS; 2022-10-01)
PROC: 05HY33Z Insertion of Infusion Device into Upper Vein, Percutaneous Approach (ICD-10-PCS; 2022-10-03)
PROC: B54MZZA Ultrasonography of Right Upper Extremity Veins, Guidance (ICD-10-PCS; 2022-10-03)
PROC: 05HY33Z Insertion of Infusion Device into Upper Vein, Percutaneous Approach (ICD-10-PCS; 2022-10-05)
PROC: B54MZZA Ultrasonography of Right Upper Extremity Veins, Guidance (ICD-10-PCS; 2022-10-05)
DX: A41.9 Sepsis, unspecified organism (principal); J69.0 Pneumonitis due to inhalation of food and vomit; J96.01 Acute respiratory failure with hypoxia; R65.21 Severe sepsis with septic shock; E87.20 Acidosis, unspecified; G93.40 Encephalopathy, unspecified; E87.0 Hyperosmolality and hypernatremia; N17.9 Acute kidney failure, unspecified; F10.139 Alcohol abuse with withdrawal, unspecified; G40.409 Other generalized epilepsy and epileptic syndromes, not intractable, without status epilepticus; E87.6 Hypokalemia; F17.200 Nicotine dependence, unspecified, uncomplicated; R73.9 Hyperglycemia, unspecified; D69.6 Thrombocytopenia, unspecified; Z20.822 Contact with and (suspected) exposure to COVID-19; Y90.9 Presence of alcohol in blood, level not specified
CPT/HCPCS: 36415; 36600; 70450-TC; 71045; 76376; 80048; 80053; 80076; 80307; 81000; 82803-TC; 82962; 83605; 83735; 83880; 84100; 84132; 84484; 85025; 85651-TC; 86140; 87040; 87070-TC; 87081; 87086; 87205-TC; 87230-TC; 92610-GN; 93005; 93306; 94002; 94003; 94640; 95816; 96365; 96367; 96375; 97116-GP; 97163-GP; 97530-GP; 99291; 99292; C1751; G0482; J1650; J1815; J1940; J1953; J2060; J2250; J2543; J2704; J3010; J3370; J3411; J3475; J3480; J3490; J7030; J7040; J7050; J7060